=== PATIENT | female | born 1985 | race Caucasian/White ===

== ENCOUNTER 2018-04-14 13:39 | Emergency (ER) | payer OTHER ==
[2018-04-14] MEDS ORDERED: Bacitracin Oint 28.35 GM Tube ONE (14:14)
[2018-04-14 15:02] VITALS: BP 138/82
[2018-04-14] MEDS ORDERED: Bacitracin Oint 1 GM U/D Packet TOP ONE (15:17)
--- NOTE | 2018-04-14 21:01 | ER ---
SUBJECTIVE: A 32-year-old female, called me personally to request that I come in and suture laceration that she sustained somewhere between 12:00 and 12:30 this afternoon with a clean serrated clean knife while cutting some buns to make sandwiches. Reports that she had previously checked into the ER, but the wait was going to be too long and she did not want to drive all the way to [place], so I agreed to come in and take care of the patient and made arrangements to do it. The patient believes that her last Tdap would have been with the of her last child, but does not know for sure. Otherwise, denies any current illnesses or complications. Past medical, surgical, social, and family histories are noncontributory and not obtained at this time. ALLERGIES: Allergy to trazodone. MEDICATIONS: 1. Sucralfate. 2. Zofran. 3. Bentyl. 4. Nexium. REVIEW OF SYSTEMS: No recent other illnesses reported. Full review not completed. OBJECTIVE: Vital Signs: Temperature is 98.2, pulse 82, respiratory rate of 16, blood pressure 138/80. General appearance: Well alert and oriented, understanding of the circumstances. Extremities: Left palmar aspect of the middle finger reveals a 1 cm linear laceration just distal to the PIP joint that is bleeding with a small amount of subcutaneous tissue present. No tendon or bone exposed. PROCEDURE: Verbal consent obtained to place a digital block and then suture the lesion close for hemostasis and improved healing because it is on a flexor surface. DETAILS: The patient appropriately positioned and skin prepped with rubbing alcohol. Digital block performed in the usual fashion using 4.5 mL of 1% lidocaine without epi, and we verified good anesthetic result before proceeding. The skin area was cleaned with Betadine and two simple sutures of 4-0 Ethilon were used to reapproximate the wound with good hemostasis. Bacitracin and sterile dressing were then applied after the Betadine was washed off. She was also wrapped with a bulky bandage and a stabilizing size arm board to prevent hyperextension of the finger. The patient tolerated well. There were no complications. ESTIMATED BLOOD LOSS: Less than 1 mL. ASSESSMENT: Simple laceration, left middle finger, just distal to the PIP joint on the palmar surface, 1 cm in length, repaired with simple suture x2. PLAN: Post care instructions were provided including to keep the dressing on for the next 24 hours and then she could use a simple soap and pat drying. She could keep bacitracin and bandage on for the first several days, and then after that, allow it open to air as much as possible. Discussed the risks of hyperextension and that she needs to keep the finger in neutral position, but she would be able to flex. She should keep the arm board on until the skin is well approximated. Sutures should be removed in approximately 10 days. She understands signs and symptoms of infection for which she would need to return for repeat evaluation and further care. Her questions were answered. Immunization records were reviewed and verified last Tdap was 07/21/10. [facility] /[id number] [place]
== END 2018-04-14 14:30 | disposition home or self-care (01) ==
LOC: DL.ED 13:39
DX: Z53.21 Procedure and treatment not carried out due to patient leaving prior to being seen by health care provider (principal)
CPT/HCPCS: A9270-GY

== ENCOUNTER → 2019-02-06 | Outpatient (CLI) | payer OTHER ==
[2019-02-06 10:42] LABS: ANION GAP 15.7; CHLORIDE,CL 104 mmol/L (101-111); SODIUM,NA 136 mmol/L (135-145)
== END ==
LOC: DL.CLIN 09:10
PROVIDERS: ATTEND Physician Assistant Medical
DX: R19.7 Diarrhea, unspecified (principal); R50.9 Fever, unspecified
CPT/HCPCS: 80053; 85025; 87045; 87046; 87324; 87493; 87899

== ENCOUNTER 2019-07-20 11:37 | Emergency (ER) | payer OTHER ==
[2019-07-20 12:11] VITALS: BP 113/72; PULSE 80
--- NOTE | 2019-07-20 12:20 | EDM.PDOC ---
Scribed by Minerva Ervin 07/20/19 1220 for Levi Kwok MD ED HPI GENERAL MEDICAL PROBLEM - General Chief Complaint: ENT Problem Stated Complaint: LEFT EAR ACHE Time Seen by Provider: 07/20/19 11:55 Source of Information: Reports: Patient, RN, RN Notes Reviewed History Limitations: Reports: No Limitations - History of Present Illness INITIAL COMMENTS - FREE TEXT/NARRATIVE: Patient presents to the ER by POv. She states she ruiz had ear infection since May and been on antibiotics twice, different one each time. Referred to ENT but has not heard from them yet. Left ear is now painful, draining unless cotton is kept in ear. Patient reports she was told she has a broken ear drum and acute mastoiditis with a cyst in her sinus. Onset: Gradual Duration: Getting Worse Location: Reports: Other (left ear) Quality: Reports: Ache Severity: Moderate Improves with: Reports: None Worsens with: Reports: None Associated Symptoms: Reports: No Other Symptoms Left Ear Pain Score (Numeric/FACES): 5 - Related Data Allergies Allergy/AdvReac Type Severity Reaction Status Date / Time trazodone Allergy Weakness Verified 07/20/19 11:43 Home Meds: Home Meds Ondansetron [Zofran] 4 mg PO Q6H PRN 09/09/15 [History] clonazePAM [Clonazepam] 1 mg 07/20/19 [History] Past Medical History - Past Health History Medical/Surgical History: Denies Medical/Surgical History Gastrointestinal History: Reports: Cholelithiasis, GERD Endocrine/Metabolic History: Reports: Obesity/BMI 30+ - Past Surgical History GI Surgical History: Reports: Cholecystectomy Social & Family History - Family History Family Medical History: Noncontributory - Caffeine Use Caffeine Use: Reports: None - Living Situation & Occupation Living situation: Reports: with Family Occupation: Employed ED ROS ENT - Review of Systems Review Of Systems: ROS reveals no pertinent complaints other than HPI. ED EXAM, ENT - Physical Exam Exam: See Below Exam Limited By: No Limitations General Appearance: Alert, WD/WN, No Apparent Distress Eye Exam: Bilateral Eye: Normal Inspection Ears: Mastoid Tenderness (Mild, Left), Canal Discharge (Yellowish, Left), Other (Left TM partially obscurred by purulent drainage, no visible perf. of TM seen. Mild canal swelling. Right ear/TM normal to exam.). No: Mastoid Swelling Nose: Normal Inspection, Normal Mucousa, No Blood Mouth/Throat: Normal Inspection, Normal Gums, Normal Lips, Normal Oropharynx, Normal Teeth Head: Atraumatic, Normocephalic Neck: Normal Inspection, Supple, Non-Tender, Full Range of Motion. No: Lymphadenopathy (L), Lymphadenopathy (R) Respiratory/Chest: No Respiratory Distress, Normal Breath Sounds Neurological: Alert, Oriented, CN II-XII Intact Psychiatric: Normal Mood Skin: Warm, Dry, Intact, Normal Color, No Rash Course - Vital Signs Last Recorded V/S: Last Vital Signs Temp 98.2 F 07/20/19 11:49 Pulse 80 07/20/19 11:49 Resp 18 07/20/19 11:49 BP 113/72 07/20/19 11:49 Pulse Ox 99 07/20/19 11:49 - Orders/Labs/Meds Orders: Active Orders 24 hr Category Date Time Status CULTURE EAR [RM] Stat Lab 07/20/19 11:58 Received Labs: Left Ear Canal culture: pending Departure - Departure Time of Disposition: 12:17 Disposition: Home, Self-Care 01 Condition: Good Clinical Impression: Mastoiditis of left side Otitis externa Qualifiers: Otitis externa type: other infective Chronicity: unspecified Laterality: left Qualified Code(s): H60.392 - Other infective otitis externa, left ear - Discharge Information *PRESCRIPTION DRUG MONITORING PROGRAM REVIEWED*: No *COPY OF PRESCRIPTION DRUG MONITORING REPORT IN PATIENT GIUSEPPE: No Instructions: Otitis Externa Forms: ED Department Discharge Additional Instructions: Rx: Clindamycin 300mg Rx: Ofloxacin Otic 0.3% Ask your primary clinic/provider to review the left ear culture results around Sunday of this week. Follow up with the Ear/Nose/Throat specialist at the first available appointment. - My Orders Last 24 Hours: My Active Orders 07/20/19 11:58 CULTURE EAR [RM] Stat - Assessment/Plan Last 24 Hours: My Active Orders 07/20/19 11:58 CULTURE EAR [RM] Stat I have read and agree with the documentation that has been completed regarding this visit. By signing this record, I attest that the documentation was completed in my physical presence and is an accurate record of the encounter.
== END 2019-07-20 12:29 | disposition home or self-care (01) ==
LOC: DL.ED 11:37
DX: H60.392 Other infective otitis externa, left ear (principal); H70.92 Unspecified mastoiditis, left ear; E66.9 Obesity, unspecified; Z68.35 Body mass index [BMI] 35.0-35.9, adult; Z88.8 Allergy status to other drugs, medicaments and biological substances
CPT/HCPCS: 87070; 87077; 87186; 99283

== ENCOUNTER 2020-10-22 07:27 | Emergency (ER) | payer OTHER ==
[2020-10-22 07:29] VITALS: BP 96/35; PULSE 77
--- NOTE | 2020-10-22 07:30 | EDM.PDOC ---
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 OR staff assisted the pt into a chair so that she would not fall to the floor, and promptly brought her to the ER. Pt denies chest pain, shortness of breath, visual changes, palpitations, or rapid heart rate. She reports that she received the Moderna COVID vaccine yesterday and had fever, chills, and body aches during the night, but not currently. She reports complete resolution of the lightheadedness and feels "back to normal". However, the pt is now complaining of onset of a "typical" migraine aura. Pt denies any PMHx that would suggest that she is at risk for syncope. Onset: Today, Gradual Duration: Resolved Prior to Arrival Location: Reports: Generalized Quality: Reports: Other (Denies pain) Severity: Moderate Improves with: Reports: None Worsens with: Reports: None Associated Symptoms: Reports: No Other Symptoms - Related Data Allergies Allergy/AdvReac Type Severity Reaction Status Date / Time trazodone Allergy Weakness Verified 10/22/20 07:32 Home Meds: Home Meds ARIPiprazole [Abilify] 5 mg PO DAILY 10/22/20 [History] lamoTRIgine [Lamotrigine] 25 mg PO DAILY 10/22/20 [History] Past Medical History - Past Health History Medical/Surgical History: Denies Medical/Surgical History Gastrointestinal History: Reports: Cholelithiasis, GERD Neurological History: Reports: Migraines Psychiatric History: Reports: Anxiety, Bipolar, Depression Endocrine/Metabolic History: Reports: Obesity/BMI 30+ - Past Surgical History GI Surgical History: Reports: Cholecystectomy Social & Family History - Family History Family Medical History: No Pertinent Family History - Caffeine Use Caffeine Use: Reports: None - Living Situation & Occupation Living situation: Reports: with Family Occupation: Student ED ROS GENERAL - Review of Systems Review Of Systems: Comprehensive ROS is negative, except as noted in HPI. - Physical Exam Exam: See Below Exam Limited By: No Limitations General Appearance: Alert, WD/WN, No Apparent Distress, Obese Eye Exam: Bilateral Eye: EOMI, Normal Inspection, PERRL Nose: Normal Inspection, Normal Mucosa, No Blood Throat/Mouth: Normal Inspection, Normal Lips, Normal Teeth, Normal Gums, Normal Oropharynx, Normal Voice, No Airway Compromise Head Exam: Atraumatic, Normocephalic Neck: Normal Inspection, Supple, Non-Tender, Full Range of Motion Respiratory/Chest: No Respiratory Distress, Lungs Clear, Normal Breath Sounds, No Accessory Muscle Use, Chest Non-Tender Cardiovascular: Normal Peripheral Pulses, Regular Rate, Rhythm, No Edema, No Gallop, No JVD, No Murmur, No Rub GI/Abdominal: Normal Bowel Sounds, Soft, Non-Tender, No Organomegaly, No Distention, No Abnormal Bruit, No Mass Neuro Exam (Abbreviated): Alert, Oriented, CN II-XII Intact, Normal Cognition, Normal Gait, No Motor/Sensory Deficits Back Exam: Normal Inspection, Full Range of Motion, NT Extremities: Normal Inspection, Normal Range of Motion, Non-Tender, No Pedal Edema, Normal Capillary Refill Psychiatric: Normal Affect, Normal Mood Skin Exam: Warm, Dry, Intact, Normal Color, No Rash #1 Interpretation EKG Date: 10/22/20 Time: 07:37 Rhythm: Other (SR) Rate (Beats/Min): 80 [place]: Normal P-Wave: Present QRS: Normal ST-T: Normal QT: Normal Comparison: NA - No Prior EKG Course - Vital Signs Last Recorded V/S: Last Vital Signs Temp 96.7 F L 10/22/20 07:28 Pulse 77 10/22/20 07:28 Resp 16 10/22/20 07:28 BP 96/35 L 10/22/20 07:28 Pulse Ox 98 10/22/20 07:28 Orthostatic Blood Pressure [ 95/67 Standing] Orthostatic Blood Pressure [ 101/64 Sitting] Orthostatic Blood Pressure [ 97/64 Supine] - Orders/Labs/Meds Orders: Active Orders 24 hr Category Date Time Status EKG 12 Lead [EKG Documentation Completion] [RC] STAT Care 10/22/20 07:31 Active Orthostatic Vital Signs [RC] ASDIRECTED Care 10/22/20 07:31 Active BASIC METABOLIC PANEL,BMP [CHEM] Stat Lab 10/22/20 07:48 Results HCG QUALITATIVE,SERUM [CHEM] Stat Lab 10/22/20 07:48 Results Sodium Chloride 0.9% [Normal Saline] 1,000 ml Med 10/22/20 07:31 Active IV .BOLUS Medication Orders Sodium Chloride (Normal Saline) 1,000 mls @ 999 mls/hr IV .BOLUS ONE Stop: 10/22/20 08:31 Last Admin: 10/22/20 07:51 Dose: 999 mls/hr Documented by: LONNIE Labs: Laboratory Tests 10/22/20 10/22/20 Range/Units 07:48 07:48 WBC 6.6 (5.0-10.0) 10^3/uL RBC 4.78 (4.2-5.4) 10^6/uL Hgb 14.3 (12.0-16.0) g/dL Hct 41.8 (37.0-47.0) % MCV 87.4 D (80-100) fL MCH 29.9 (27.0-34.0) pg MCHC 34.2 (33.0-35.0) g/dL Plt Count 218 D (150-450) 10^3/uL Neut % (Auto) 85.6 H (42.2-75.2) % Lymph % (Auto) 9.3 L (20.5-50.1) % Ceiba % (Auto) 4.1 (2-8) % Eos % (Auto) 0.8 L (1.0-3.0) % Baso % (Auto) 0.2 (0.0-1.0) % Sodium 137 (136-145) mmol/L Potassium 3.9 (3.5-5.1) mmol/L Chloride 101 (98-107) mmol/L Carbon Dioxide 28 (21-32) mmol/L Anion Gap 11.9 (7-13) mEq/L BUN 13 (7-18) mg/dL Creatinine 0.89 (0.55-1.02) mg/dL Est Cr Clr Drug Dosing TNP Estimated GFR (MDRD) > 60 Glucose 124 H (74-99) mg/dL Calcium 8.6 (8.5-10.1) mg/dL Meds: Medications Generic Name Dose Route Start Last Admin Trade Name Freq PRN Reason Stop Dose Admin Sodium Chloride 1,000 mls @ 999 mls/hr 10/22/20 07:31 10/22/20 07:51 Normal Saline IV 10/22/20 08:31 999 mls/hr .BOLUS ONE Administration Discontinued Medications Generic Name Dose Route Start Last Admin Trade Name George PRN Reason Stop Dose Admin Ketorolac Tromethamine 30 mg 10/22/20 07:31 10/22/20 07:50 Toradol IVPUSH 10/22/20 07:32 30 mg ONETIME ONE Administration Departure - Departure Time of Disposition: 08:06 Disposition: Home, Self-Care 01 Condition: Good Clinical Impression: Syncope Qualifiers: Syncope type: unspecified Qualified Code(s): R55 - Syncope and collapse Migraine headache with aura Qualifiers: Status migrainosus presence: without status migrainosus Intractability: not intractable Qualified Code(s): G43.109 - Migraine with aura, not intractable, without status migrainosus - Discharge Information *PRESCRIPTION DRUG MONITORING PROGRAM REVIEWED*: Not Applicable *COPY OF PRESCRIPTION DRUG MONITORING REPORT IN PATIENT GIUSEPPE: Not Applicable Instructions: Syncope, Migraine Headache Forms: ED Department Discharge Additional Instructions: Rest, and drink plenty of water today. Symptomatic treatment of migraine as needed. Follow up in clinic if any further concerns. May resume regular unrestricted activity tomorrow (2020). Sepsis Event Note (ED) - Focused Exam Vital Signs: Vital Signs Temp Pulse Resp BP Pulse Ox 10/22/20 07:28 96.7 F L 77 16 96/35 L 98 - My Orders Last 24 Hours: My Active Orders 10/22/20 07:31 EKG 12 Lead [EKG Documentation Completion] [RC] STAT Orthostatic Vital Signs [RC] ASDIRECTED Sodium Chloride 0.9% [Normal Saline] 1,000 ml IV .BOLUS 10/22/20 07:48 BASIC METABOLIC PANEL,BMP [CHEM] Stat HCG QUALITATIVE,SERUM [CHEM] Stat - Assessment/Plan Last 24 Hours: My Active Orders 10/22/20 07:31 EKG 12 Lead [EKG Documentation Completion] [RC] STAT Orthostatic Vital Signs [RC] ASDIRECTED Sodium Chloride 0.9% [Normal Saline] 1,000 ml IV .BOLUS 10/22/20 07:48 BASIC METABOLIC PANEL,BMP [CHEM] Stat HCG QUALITATIVE,SERUM [CHEM] Stat
[2020-10-22] MEDS ORDERED: Ketorolac 30 MG/ML SDV IVPUSH ONE (07:31)
[2020-10-22] MEDS ORDERED: Sodium Chloride 0.9% 1,000 ML IV ONE (07:31)
[2020-10-22 08:02] LABS: ANION GAP 11.9 mEq/L (7-13); CHLORIDE,CL 101 mmol/L (98-107); SODIUM,NA 137 mmol/L (136-145)
== END 2020-10-22 08:28 | disposition home or self-care (01) ==
LOC: DL.ED 07:27
DX: G43.109 Migraine with aura, not intractable, without status migrainosus (principal); R55 Syncope and collapse; E66.9 Obesity, unspecified; Z88.5 Allergy status to narcotic agent; Z79.899 Other long term (current) drug therapy
CPT/HCPCS: 36415; 80048; 84703; 85025; 93005; 96374; 99284; J1885; J7030; 93010; 99283